=== PATIENT | female | born 1945 ===

== ENCOUNTER 2017-12-27 10:54 | Outpatient (CLI) | payer OTHER ==
[~2017-12-27] VITALS: Ht 160 cm; Wt 68.0 kg
[~2017-12-27 10:54] MED LIST: COZAAR50 MG PO; FOLIC + B12 TAB1 TAB PO; GLIPIZIDE10 MG PO; LANTUS100 U/ML; SYNTHROID125 MCG PO; ZIAC
== END 2017-12-27 11:10 | disposition home or self-care (01) ==
LOC: OFIC 805 10:54
DX: K21.0 Gastro-esophageal reflux disease with esophagitis (principal); J30.9 Allergic rhinitis, unspecified; R49.0 Dysphonia

== ENCOUNTER 2018-02-10 10:15 | Outpatient (CLI) | payer OTHER ==
[~2018-02-10] VITALS: Ht 152.4 cm; Wt 68.0 kg
== END 2018-02-10 10:30 | disposition home or self-care (01) ==
LOC: OFIC 805 10:15
DX: H91.8X1 Other specified hearing loss, right ear (principal); H93.8X3 Other specified disorders of ear, bilateral; D32.9 Benign neoplasm of meninges, unspecified

== ENCOUNTER 2022-10-13 01:50 | Emergency (ER) | payer OTHER ==
[~2022-10-13] VITALS: Ht 160 cm; Wt 67.1 kg
== END 2022-10-13 05:51 | disposition home or self-care (01) ==
LOC: ER 01:50
DX: N20.1 Calculus of ureter (principal); Z88.0 Allergy status to penicillin; Z88.6 Allergy status to analgesic agent; Z88.2 Allergy status to sulfonamides; N20.0 Calculus of kidney; K57.30 Diverticulosis of large intestine without perforation or abscess without bleeding
CPT/HCPCS: 36415; 74176; 96365; 99284; J1885

== ENCOUNTER 2024-01-04 11:23 | Outpatient (CLI) | payer OTHER | END 2024-01-04 11:31 | disposition home or self-care (01) | LOC: TOM 11:23 | PROVIDERS: ATTEND Urology | DX: N20.0 Calculus of kidney (principal); D32.9 Benign neoplasm of meninges, unspecified | CPT/HCPCS: 70553 ==